=== PATIENT | female | born 1960 | race African-American/Black ===

== ENCOUNTER 2023-10-10 18:59 | Emergency (ER) | payer BC, MEDICARE ==
[~2023-10-10] VITALS: Ht 165.1 cm; Wt 91.0 kg
[2023-10-10 19:04] VITALS: O2SAT 98
[2023-10-10 20:26] VITALS: BP 142/82; PULSE 106; RESP 18; TEMP 98.7
== END 2023-10-10 20:26 | disposition home or self-care (01) ==
LOC: ER 18:59
DX: Z48.01 Encounter for change or removal of surgical wound dressing (principal); Z90.710 Acquired absence of both cervix and uterus
CPT/HCPCS: 99281